=== PATIENT | female | born 1985 | race Caucasian/White ===

== ENCOUNTER 2022-03-25 04:00 | Day surgery (SDC) | payer OTHER ==
[2022-03-25 08:22] VITALS: BMI 29.0
[2022-03-25] MEDS ORDERED: BUPIVACAINE HCL/PF 0.5% (5MG/ML) 10 ML VIAL ONE (09:15)
[2022-03-25] MEDS ORDERED: MIDAZOLAM HCL 2 MG/2 ML SINGLE DOSE VIAL ONE (09:24)
[2022-03-25] MEDS ORDERED: SUCCINYLCHOLINE CHLORIDE 200 MG/10 ML SYRINGE ONE (10:52)
[2022-03-25] MEDS ORDERED: BUPIVACAINE HCL/PF 0.25% (2.5MG/ML) 10 ML VIAL ONE (10:52)
[2022-03-25] MEDS ORDERED: BUPIVACAINE HCL/PF 0.5% (5 MG/ML) 30 ML VIAL IJ ONE (11:49)
[2022-03-25] MEDS ORDERED: ONDANSETRON 4 MG/2 ML VIAL IVPUSH PRN (12:13)
[2022-03-25] MEDS ORDERED: ACETAMINOPHEN 1000 MG/100 ML BAG IVPB ONE (12:13)
[2022-03-25] MEDS ORDERED: ACETAMINOPHEN INJECTION 100 ML IVPB ONE (12:28)
[2022-03-25 13:42] VITALS: TEMP 97.2
[2022-03-25] MEDS ORDERED: oxyCODONE HCL 5 MG TABLET ONE (14:04)
[2022-03-25 14:54] VITALS: RESP 20
[2022-03-25] MEDS ORDERED: oxyCODONE HCL 5 MG TABLET PO ONE (14:57)
[2022-03-25 15:55] VITALS: BP 118/72; PULSE 88
== END 2022-03-25 15:50 | disposition home or self-care (01) ==
LOC: JASU-SURG 04:00
PROVIDERS: ATTEND Family Medicine
PROC: 0U574ZZ Destruction of Bilateral Fallopian Tubes, Percutaneous Endoscopic Approach (ICD-10-PCS; principal; 2022-03-25 10:00)
DX: Z30.2 Encounter for sterilization (principal)
CPT/HCPCS: 81025; 94760